=== PATIENT | male | born 1955 | race Caucasian/White ===

== ENCOUNTER 2016-10-11 17:35 | Inpatient (IN) ==
[2016-10-11] MEDS ORDERED: *HR* Midazolam HCl 2 MG/2 ML VIAL ONE (18:04)
[2016-10-11] MEDS ORDERED: *HR* FentaNYL (PF) 100 MCG/2 ML VIAL ONE (18:04)
[2016-10-11] MEDS ORDERED: 0.9 % Sodium Chloride 1,000 ML ONE (18:04)
[2016-10-11] MEDS ORDERED: Nitroglycerin 1,000 MCG/10 ML VIAL IV ONE (18:04)
[2016-10-11] MEDS ORDERED: Verapamil 5 MG/2 ML VIAL ONE (18:04)
[2016-10-11] MEDS ORDERED: Heparin 1,000 UNITS/500 mL NS 500 ML ONE (18:04)
[2016-10-11] MEDS ORDERED: *HR* Heparin 10,000 UNIT/10 ML VIAL ONE (18:04)
[2016-10-11] MEDS ORDERED: Ondansetron 4 MG/2 ML VIAL IVP PRN (18:20)
--- NOTE | 2016-10-11 18:20 | Pre-Sedation Evaluation ---
Pre-sedation evaluation - Pre-sedation checklist Date of procedure: 10/11/16 Procedure: [facility] Recent Vitals: VS as documented in EMR H&P (including ROS) documented in medical record: Yes Previous reaction to sedatives/anesthetics: No Dietary Status: NPO after Midnight Airway Assessment: Patient can open mouth completely, TMJ function normal Dentition: No loose teeth or bridges ASA Classification *see protocol: CLASS II-Mild systemic disease Plan of Care: Pt appropriate candidate for procedure/moderate/conscious sedation , Risks/benefits of procedure/sedation discussed w/ patient/family
--- NOTE | 2016-10-11 18:24 | Cardiology History & Physical ---
Date of Encounter: 10/11/16 Time of Encounter: 18:00 Assessment and Plan (1) STEMI (ST elevation myocardial infarction) Current Visit: No Status: Acute s/p cardiac arrest. Lateral STEMI. Emergent LHC to delineate coronary disease amenable for intervention. EF assessment will be completed. Aspirin, Brilinta , and heparin given. The assessment and plan as outlined above was discussed with the patient and/or family members who expressed understanding and agreement. All questions were answered. Qualifiers: Involved coronary artery: left circumflex coronary artery Qualified Code(s) : I21.21 - ST elevation (STEMI) myocardial infarction involving left circumflex coronary artery (2) Cardiac arrest Current Visit: Yes Status: Acute Emergent LHC. The assessment and plan as outlined above was discussed with the patient and/or family members who expressed understanding and agreement. All questions were answered. History of Present Illness Chief complaint: cardiac arrest / stemi HPI: Mr. Thompson is a 60 year old male with no previous cardiac history was at work when he had loss of consciousness and CPR x ~8minute with several defibrillations. When EMS arrived on scene, patient in SR and hemodynamically stable. He had evidence of lateral STEMI on EKG. Patient notes chest discomfort but is currently confused after 8 min CPR/cardiac arrest. Past Med Surg Social Fam HX - Past Medical History Medical history: hyperlipidemia, hypertension Psychiatric history: no psych history - Social History Smoking Status: Former smoker Smokeless Tobacco Status: No Alcohol use: none Drug use: none Medications and Allergies Allergies No Known Allergies Allergy (Verified 10/11/16 17:59) All Systems Review: A 10-system review of systems was performed and is negative for pertinent findings except as documented above in the HPI. - Constitutional Constitutional: no chills, no fever(s) - EENT Eyes: no blurred vision, no loss of vision Nose, mouth and throat: no bleeding gums, no epistaxis - Cardiovascular Cardiovascular: chest pain at rest, no syncope - Respiratory Respiratory: no hemoptysis, no wheezing - Gastrointestinal Gastrointestinal: no hematemesis, no hematochezia - Genitourinary Genitourinary: no dysuria, no hematuria - Musculoskeletal Musculoskeletal: no arthralgias, no myalgias - Integumentary Integumentary: no erythema, no unusual bruising - Neurological Neurological: no focal weakness, no syncope - Psychiatric Psychiatric: no anxiety, no depression - Hematological/Lymphatic Hematologic/Lymphatic: no easy bleeding, no easy bruising Physical Examination General: Conversant, Other (mild distress) HEENT: Atraumatic, Normocephaly Neck: No JVD Cardiac: Reg Rate and Rhythm Lungs: Normal Breath Sounds Neuro: Alert and responsive Abdomen: Soft Skin: No rashes noted on visualized skin Musculoskeletal: No Chest Wall Tenderness Extremities: No Edema Results - EKG Interpretation EKG results cardiology: personally reviewed, sinus rhythm (lateral current of injury - STEMI with reciprocal changes)
[2016-10-11] MEDS ORDERED: Tirofiban 12.5 MG/250ML 12.5 MG/250 ML BAG IVC SCH (18:30)
[2016-10-11] MEDS ORDERED: Tirofiban 5 MG/100ML 5 MG/100 ML BAG IV ONE (18:53)
[2016-10-11] MEDS ORDERED: *HR* Morphine 2 MG/ML SYRINGE IVP PRN (19:12)
[2016-10-11] MEDS ORDERED: *HR* HYDROcodone/Acet 5/325 mg TABLET PO PRN (19:12)
[2016-10-11] MEDS ORDERED: Acetaminophen 325 MG TABLET PO PRN (19:12)
[2016-10-11] MEDS ORDERED: *HR* OxyCODONE/APAP 5/325 TABLET PO PRN (19:12)
--- NOTE | 2016-10-11 19:34 | Invasive Diagnostic Lab Proc ---
Name: Panda Thompson Date of Study: 10/11/2016 Date: 1955 Ht: 67.0in Medical Record#: [id number] Age: 60 Wt: 200.00lb Gender: Male BSA: 2.02 Order #: [id number] BMI: 31.32 Physicians Procedure Physician: Jorgito Aguilera MD, [facility] Referring MD: Referring MD: Staff Name Position Time In [facility], Danyelle RT (R) Monitor 06:16 PM Sayra Aguilar RN Supervisory Investigative Specialist 06:16 PM Danyelle Gavin RT (R) Scrub 06:16 PM Indications Indication STEMI Procedures Performed Procedure PRQ CARD REVASC [place] 1 VSL L HRT ARTERY/VENTRICLE ANGIO Pre-Procedure Checklist Informed consent is complete signed and on chart. H\\T\\P is on chart. ID band is on and ID verified with patient. Patient NPO for procedure The procedure was described for the patient and questions were answered. Blood Pressure: 107/91 ECG is on chart. Rhythm: NSR Plan of Care Patient will tolerate the procedure without complications. Adequate level of comfort will be maintained. Hemodynamics will remain stable Patient will recover from procedure without complications. Respiratory function will be maintained. Cardiac rhythm will remain stable. Patient temperature will be maintained. Patient and/or family have verbalized understanding of the procedure. Patient Education Chief Complaint/Reason for Test: Cardiac Cath Developmental Category: Adult (18-64 years) Developmentally Appropriate for Age: Yes Learning Barriers: None Education Needs: Procedure Education Method: Verbal Information Taught: Cardiac Cath Educational Evaluation: Able to repeat information Intravenous Access Time IV Size Location DC'd Fluid/Drip Rate Units RN 20g 1 1/4" Patent On Arrival Sayra Aguilar RN 18g 1 1/4" Patent On Arrival 0.9NaCl 25 ml/hr Sayra Aguilar RN Allergies No Known Allergies Vital Signs Time BP (mmHg) HR (bpm) O2 Sat. RR (bpm) LOC 06:25 PM 119 / 94 83 96 % 22 06:27 PM 107 / 91 82 99 % 9 06:30 PM 120 / 69 81 99 % 35 06:33 PM 110 / 98 82 100 % 5 06:36 PM 112 / 65 75 97 % 14 06:39 PM 110 / 69 79 94 % 11 06:42 PM 108 / 60 75 97 % 9 06:45 PM 115 / 66 82 97 % 16 06:48 PM 115 / 62 77 97 % 20 06:51 PM 119 / 60 76 97 % 16 06:54 PM 112 / 62 75 97 % 28 06:57 PM 105 / 67 75 95 % 13 07:00 PM 87 / 66 82 95 % 07:02 PM 111 / 56 77 97 % 23 07:03 PM 108 / 65 75 98 % 14 Procedural Medications Time Medication Dose Units Method Given By 06:21 PM Oxygen 2 L/min nasal cannula Sayra Aguilar RN 06:21 PM Versed 2 mg Intravenous Sayra Aguilar RN 06:21 PM Fentanyl 50 mcg Intravenous Sayra Aguilar RN 06:28 PM Lidocaine 2% 1 ml Subcutaneous Jorgito Aguilera MD, FACC 06:29 PM Heparin 2000 units Nitroglycerin 200 mcg Verapamil 2.5 mg Intraarterial Jorgito Aguilera MD, FACC 06:54 PM Nitroglycerin 200 mcg Intracoronary Jorgito Aguilera MD 06:41 PM Aggrastat Bolus: 46 ml Intravenous Sayra Aguilar RN 06:41 PM Aggrastat 5mg/100ml 16.5 ml Intravenous Sayra Aguilar RN ASA Classification: Emergent Procedure: ASA score is assumed Tan Score Preprocedure Postprocedure Activity 2- Moves 4 extremities sustained head lift Activity 2- Moves 4 extremities sustained head lift Circulation 2- SBP +/= 20 points of pre-anesthetic level Circulation 2- SBP +/= 20 points of pre-anesthetic level Consciousness 2- Awake and alert oriented x 3 Consciousness 2- Awake and alert oriented x 3 O2 Saturation 2- Able to maintain O2 satruation of 92% on room air O2 Saturation 2- Able to maintain O2 satruation of 92% on room air Respiratory 2- Able to deep breathe and cough well Respiratory 2- Able to deep breathe and cough well Total Score 10 Total Score 10 Contrast Agent: Isovue Diagnostic Contrast: 170 ml Total Contrast: 170 ml Fluoro Dose: 707 mGy Procedure Log Time Note Enter By 06:16 PM Pt arrived to engineer ge[facility] laboratory 2 at 18:16 scoates 06:16 PM Danyelle Cabrales RT (R) Position: Monitor Time in: 18:16 tsites 06:16 PM Sayra Aguilar RN Position: Supervisory Investigative Specialist Time in: 18:16 tsites 06:16 PM Danyelle Gavin RT (R) Position: Scrub Time in: 18:16 tsites 06:20 PM pt unable to remember things constantly repeating himself. neuro assessment completed and within gallo limits pupils equal and reactive per Sayra Aguilar RN tsites 06:20 PM Physician arrived 18:20 tsites 06:20 PM Procedure start 18:20 tsites 06:21 PM Time: 18:21 Oxygen on at 2 L/min per nasal cannula by Sayra Aguilar RN tsites 06:21 PM Time: 18:21 Versed 2 mg Intravenous Given by Sayra Aguilar RN tsites 06:21 PM Time: 18:21 Fentanyl 50 mcg Intravenous Given by Sayra Aguilar RN tsites 06:23 PM Vitals capture started with the following parameters, Patient=Adult, Interval=3 min, Initial Ighidsyi=211 mmHg, Deflation Rate=5 mmHg, Cuff placed on Right Arm 06:24 PM 5Fr TIG catheter inserted over the wire [facility] tsites 06:24 PM 0.035 260cm Navilyst 3mmJ wire [id number] tsites 06:24 PM CathStat 06:25 PM HR=83 bpm, GFUM=162/94 mmhg, SpO2=96 %, Resp=22 B/min 06:27 PM HR=82 bpm, JLPG=431/91 mmhg, SpO2=99.0 %, Resp=9 B/min 06:28 PM Pressure channel 1 zeroed. 06:28 PM Time: 18:28 1 ml Lidocaine 2% to right radial Subcutaneous Given by Jorgito Aguilera MD, [facility] tsites 06:28 PM Access obtained by percutaneous puncture. 6Fr 10cm Terumo [place] sheath placed in right Radial artery. [id number] tsites 06:29 PM Time: 18:29 Patient given 2,000 units Heparin, 200 mcg Nitroglycerin, and 2.5 mg Verapamil Intraarterial by Jorgito Aguilera MD, [facility] tsites 06:30 PM HR=81 bpm, XOUA=159/69 mmhg, SpO2=99.0 %, Resp=35 B/min 06:31 PM Pressure channel 1 zero failed. 06:33 PM HR=82 bpm, LNPB=133/98 mmhg, AxT7=933 %, Resp=5 B/min 06:33 PM Patient charges- Angio tray pack, Navilyst 3mm J, Pulse Oximetry and ACIST tubing and transducer tsites 06:34 PM Case Delayed No tsites 06:35 PM Clinical Presentation: STEMI or equivalent tsites 06:36 PM HR=75 bpm, NYQR=800/65 mmhg, SpO2=97 %, Resp=14 B/min 06:36 PM RCA angiography performed in multiple views. tsites 06:36 PM Lesion found in Proximal RCA. Pre Stenosis: 80 Pre CESAR Flow: tsites 06:36 PM Right Coronary, Right Posterior Descending Arteries with Right Posterolateral and Acute Marginal branches with 80 % stenosis. If graft is supplying this area, 0 % stenosis tsites 06:36 PM LCA angiography performed in multiple views. tsites 06:37 PM Pressure channel 1 zeroed. 06:38 PM Recorded Pressure: Ao, HR=72, Condition=Condition 1 (Aorta) Ao 104/81/92 06:38 PM Lesion found in Mid Circumflex. Pre Stenosis: 95 Pre CESAR Flow: tsites 06:38 PM Circumflex, Obtuse Marginal, Left Posterior Descending, and Left Posterolateral Coronary Arteries with 95 % stenosis. If graft is supplying this area, 0 % stenosis tsites 06:38 PM wire reinserted catheter removed tsites 06:38 PM PCI Status Emergency tsites 06:39 PM PCI Indication: Immediate PCI for STEMI tsites 06:39 PM HR=79 bpm, ARHP=041/69 mmhg, SpO2=94.0 %, Resp=11 B/min 06:39 PM PCI lesion in Mid Circumflex. tsites 06:39 PM 6Fr RBL 3.5 Convey guide catheter was used to cannulate the PCI vessel successfully. reused? No tsites 06:40 PM Inflation device was opened. tsites 06:40 PM .014 PT Graphix 180cm guide wire across target lesion- successful. reused? No tsites 06:41 PM Time: 18:41 Aggrastat 5mg/100ml 16.5 ml Intravenous Given by Sayra Aguilar RN Piper pump tsites 06:41 PM Time: 18:41 Aggrastat Bolus: 46 ml Intravenous Given by Sayra Aguilar RN Piper pump tsites 06:42 PM HR=75 bpm, VMXO=834/60 mmhg, SpO2=97.0 %, Resp=9 B/min 06:42 PM 2.5 mm x 12 mm Emerge Monorail balloon across target lesion- successful. reused? No tsites 06:42 PM Balloon inflated @ 10 ingrid for 9 seconds tsites 06:45 PM HR=82 bpm, HDDW=682/66 mmhg, SpO2=97.0 %, Resp=16 B/min 06:47 PM 4.0mm x 24mm Synergy drug-eluting stent across target lesion- successful Lot #[id number] tsites 06:47 PM unable to cross tsites 06:48 PM HR=77 bpm, TBFK=715/62 mmhg, SpO2=97 %, Resp=20 B/min 06:49 PM 3.5mm x 24mm Synergy drug-eluting stent across target lesion- successful Lot #[id number] tsites 06:50 PM Stent deployed @ 14 ingrid for 19 seconds tsites 06:50 PM Recorded ECG: HR=75 Condition=Condition 1 06:51 PM HR=76 bpm, UGRL=588/60 mmhg, SpO2=97.0 %, Resp=16 B/min 06:51 PM Stent delivery system removed intact. tsites 06:52 PM 4.0 mm x 8mm NC Emerge balloon across target lesion- successful. reused? No tsites 06:53 PM Balloon inflated @ 20 ingrid for 12 seconds tsites 06:54 PM HR=75 bpm, CLOG=302/62 mmhg, SpO2=97.0 %, Resp=28 B/min 06:54 PM Time: 18:54 Nitroglycerin 200 mcg Intracoronary Given by Jorgito Aguilera MD tsites 06:56 PM Balloon catheter removed intact. tsites 06:56 PM Guide wire removed intact. tsites 06:56 PM wire reinserted catheter removed tsites 06:57 PM HR=75 bpm, GIJX=232/67 mmhg, SpO2=95.0 %, Resp=13 B/min 06:57 PM Recorded Pressure: LV, HR=83, Condition=Condition 1 (Left Ventricle) LV 115/36/53 06:57 PM 5Fr Pigtail catheter inserted over the wire [facility] tsites 06:57 PM Catheter selectively placed in left ventricle tsites 06:57 PM Bolus angiogram of left Ventricle complete: 10 ml/sec for a total of 30 mls tsites 06:58 PM Recorded Pressure: LV, Ao, HR=71, Condition=Condition 1 (Left Ventricle) LV 127/17/29, (Aorta) Ao 108/73/90 06:59 PM Catheter removed tsites 06:59 PM Procedure completed at 18:59 tsites 07:00 PM HR=82 bpm, NIBP=87/66 mmhg, SpO2=95.0 % 07:01 PM NIBP STAT measurement started. 07:02 PM HR=77 bpm, YZVZ=840/56 mmhg, SpO2=97 %, Resp=23 B/min 07:03 PM HR=75 bpm, QKWU=501/65 mmhg, SpO2=98 %, Resp=14 B/min 07:05 PM Sign out completed: Radiation Dose 707 mGy Fluoro Time: 6.5 Isovue 370 - 500ml contrast 170 ml given by Jorgito Aguilera MD, [facility]. Complications: NoneCardiac Rehab Consult needed: YesConfirmed administered medications: Yes tsites 07:05 PM Isovue 370 - 500ml,1 Bottle(s) used. tsites 07:05 PM Arterial sheath pulled, Vasc Band closure device used and was Successful S/N. tsites 07:05 PM 11 ml air in Vasc Band. tsites 07:06 PM Post ECG NSR tsites 07:06 PM Vitals capture stopped. 07:06 PM Post Blood Pressure 108/65 tsites 07:06 PM 19:06 Post Pulses Rt Radial 1+ tsites 07:06 PM Information taught Cardiac Cath, PCI, and Vasc Band tsites 07:06 PM Education needs Procedure, Plan of Care, and Responsibilities of Patient in Care tsites 07:06 PM Learning barriers :None tsites 07:06 PM Education Methods Verbal tsites 07:07 PM Education evaluation Able to repeat information tsites 07:07 PM Site status No bleeding/hematoma - Rt Wrist as reported by Danyelle Gavin RT (R) at 19:07 tsites 07:07 PM Plavix, Effient or Brilinta given Yes at [facility] tsites 07:07 PM Delay to floor No tsites 07:08 PM Patient out of room: 19:08 tsites 07:08 PM Family placed in consult room. tsites 07:10 PM Report given to alta GUERRERO Pt taken to ICU Room #7. 19:10 tsites Complications Complication None Hemodynamics Pressures Site Systolic/A Wave Diastolic/V Wave Mean AO 104 81 92 LV 115 36 53 LV 127 17 29 AO 108 73 90 Post Procedure Information Blood Pressure: 108/65 mmHg Rhythm: NSR Post procedural instructions were given Closure Device Time Device Success/Fail 10/11/2016 7:10:00 PM Mechanical Compression Successful Site Checks Time Location Status Staff Sheath In? Note 07:10 PM Rt Wrist No bleeding/hematoma Danyelle Gavin RT (R) Pulses Time Site Pre-Procedure Post-Procedure Note Bilateral DP \\T\\ PT 2+ Bilateral radial 2+ 7:06:00 PM Rt Radial 1+ Updated by Danyelle Cabrales RT (R) on 10/11/2016 7:29:20 PM Danyelle Cabrales, RT electronically signed on 10/11/2016 7:30:15 PM with status of Final
[2016-10-11] MEDS: *HR* Ticagrelor 90 MG TABLET PO SCH (21:03)
[2016-10-12 04:32] LABS: Basophils % 0.1 %; Hematocrit 32.2 % (37.5-50.1); Immature Granulocytes % 0.4 % (0-4); Lymphocytes # 0.7 K/mcL (0.6-4.6); Lymphocytes % 5.1 %; Mean Corpuscular HGB Conc 34.2 g/dL (31.6-35.5); Mean Corpuscular Hemoglobin 28.3 pg (28.0-33.3); Mean Corpuscular Volume 82.8 fL (83.0-100.0); Monocytes # 0.7 K/mcL (0.0-1.3); Monocytes % 5.1 %; Neutrophils # 11.5 K/mcL (1.6-8.9); Platelet Count 278 K/mcL (140-400); Red Blood Count 3.89 M/mcL (4.19-5.50); Red Cell Distribution Width 12.4 % (11.5-14.5); Segmented Neutrophils % 89.3 %
[2016-10-12 04:47] LABS: BUN/Creatinine Ratio 22 (6-26); Blood Urea Nitrogen 20 mg/dL (8-26); Calcium 8.1 mg/dL (8.6-10.8); Carbon Dioxide 20 mEq/L (19-29); Chloride 107 mEq/L (98-109); Glucose 142 mg/dL (70-99); Osmolality,Calculated 285 (280-300); Potassium 3.9 mEq/L (3.5-4.5); Sodium 135 mEq/L (136-145); eGFR For African Americans > 60 (> 60); eGFR For Non-African Americans > 60 (> 60)
--- NOTE | 2016-10-12 08:15 | Cardiology Progress Note ---
Date of Encounter: 10/12/16 Time of Encounter: 08:15 Assessment and Plan (1) Cardiac arrest Current Visit: Yes Status: Acute Per Cardiology: S/p apparent cardiac arrest requiring defibrillations and CPR-- no ECGs or rhythm strips available. Attempting to obtain from outside facility and from the field. Tele shows avg HR 68 with episodes of NSVT with longest 7 beats. K= 3.9. Will check Mg-- noted to be 1.5, will replace. Will add BB. Monitor tele. Will continue to monitor and determine prior to DC any further intervention warranted. (2) STEMI (ST elevation myocardial infarction) Current Visit: No Status: Acute Per Cardiology: S/p cardiac arrest. Lateral STEMI. S/p Emergent LHC: per discussion with Dr. Aguilera, s/p PCI to mid circ, has remaining Prox RCA 80%-- can consider staging if clinically warranted. On Aspirin, Brilinta, statin-- will switch back to home statin, adding BB. Echo pending. Has CR C/S. Current chest pain symptoms. Atypical suspect related to compressions and defib. Continue to monitor. Qualifiers: Involved coronary artery: left circumflex coronary artery Qualified Code(s) : I21.21 - ST elevation (STEMI) myocardial infarction involving left circumflex coronary artery Discussion w patient/family: The assessment and plan as outlined above was discussed with the patient and/or family members who expressed understanding and agreement. All questions were answered. Thank you for involving us in the care of your patient. Please call with any questions. Subjective Principal diagnosis: Cardiac Arrest, STEMI Interval history: Patient reports overall midsternal chest aching/soreness worse with palpation and inspirations. Reports prior to event yesterday was experiencing indigestion- like symptoms, epigastric burning and shortness of breath. Currently denies those symptoms. Reports quit smoking about 20 years ago. Objective Vital Signs, Last 4 Hours Temp Pulse Resp BP Pulse Ox 10/12/16 07:30 100.0 F H 63 19 112/60 96 10/12/16 05:57 65 18 117/67 97 10/12/16 05:13 99.8 F H 10/12/16 05:02 64 18 116/66 98 Selected Entries 10/12/16 03:59 Temperature 100.7 F H General: Conversant, No Apparent Distress HEENT: Atraumatic, Normocephaly, Mucus Membranes Moist Neck: No JVD, Normal carotid pulses Cardiac: Reg Rate and Rhythm, Normal S1 and S2, No Murmur Lungs: Normal Breath Sounds, No Wheeze, Rales, Rhonchi Neuro: Alert and responsive, No focal deficits noted Abdomen: Soft, Non-Tender Skin: No rashes noted on visualized skin, Other (Right wrist site very mild ecchymosis, no bleeding, no hematoma, right radial pulse 2+ palpable) Musculoskeletal: No Chest Wall Tenderness Extremities: No Clubbing, No Cyanosis, No Edema, Normal Pulses Results 10/12/16 04:20 10/12/16 04:20 Lab Results Intake & Output 10/09/16 10/10/16 10/11/16 10/12/16 23:59 23:59 23:59 23:59 Intake Total 0 / 0 100 / 100 Output Total 0 / 0 1000 / 1000 Balance 0 / 0 -900 / -900 Weight 102.58 kg 95.3 kg Active Medications Acetaminophen (Tylenol) 500 mg PO Q6HR PRN PRN Reason: Mild Pain Stop: 04/12/17 18:21 Acetaminophen (Tylenol) 650 mg PO Q6HR PRN PRN Reason: Mild Pain Stop: 04/12/17 19:13 Hydrocodone Bitart/Acetaminophen (Collyer 5-325 Mg) 1 tab PO Q4HR PRN PRN Reason: Moderate Pain Stop: 04/12/17 19:13 Aspirin (Aspirin) 81 mg PO DAILY [facility] Stop: 04/13/17 09:01 Diphenhydramine HCl (Benadryl) 25 mg PO HS PRN PRN Reason: Insomnia Stop: 04/12/17 19:13 Last Admin: 10/11/16 21:03 Dose: 25 mg Morphine Sulfate (Morphine Sulfate) 2 mg IVP Q2H PRN PRN Reason: Severe Pain Stop: 04/12/17 19:13 Ondansetron HCl (Zofran) 4 mg IVP Q8HR PRN PRN Reason: Nausea And Vomiting Stop: 04/12/17 18:21 Oxycodone/Acetaminophen (Percocet 5/325) 1 each PO Q4HR PRN PRN Reason: Severe Pain Stop: 04/12/17 19:13 Rosuvastatin Calcium (Crestor) 40 mg PO HS MIKE Stop: 04/12/17 21:01 Last Admin: 10/11/16 21:03 Dose: 40 mg Ticagrelor (Brilinta) 90 mg PO BID MIKE Stop: 04/12/17 21:01 Last Admin: 10/11/16 21:03 Dose: 90 mg - Imaging and Cardiology Echo: pending Cardiac cath: other (per discussion with Dr. Aguilera, s/p PCI to mid circ, has remaining Prox RCA 80% can consider staging if clinically warranted.) - EKG Interpretation EKG results cardiology: personally reviewed (No ECGs or strips available from outside facility or the field), other (Tele reviewed with avg HR past 8 hrs 68, episodes of NST noted, longest 7 beats) Consult Discharge Plan - Plan Referrals: Richard Salcedo DO [Primary Care Provider] -
[2016-10-12 08:45] LABS: Magnesium 1.5 mg/dL (1.6-2.6)
--- NOTE | 2016-10-12 08:45 | Invasive Diagnostic Lab ---
Name: Panda Thompson Date of Study: 10/11/2016 Date: 1955 Ht: 170.2 cm /67.0 in Medical Record#: [id number] Age: 60 Wt: 90.7 kg / 200.00 lb Account/Order#: [id number] Gender: Male BSA: 2.02 Order #: [id number] Fluoro Dose: 707 mGy BMI: 31.32 Procedure Physician: Jorgito Aguilera MD, [facility] Referring MD: Referring MD: Procedures Performed: PCI of Acute VA LEFT HEART CATH Indications: STEMI Impressions: There is severe two vessel coronary artery disease. There is low normal LV function EF 50% Patient had successful PTCA/Drug-Eluting Stent placement in the mid Circ. Recommendations: Optimal medical therapy of patient's disease. Aggressive risk factor modification. Patient recommended for staged PCI to proximal 80% RCA stenosis. History/Risk Factors: cardaic arrest Hypertension Dyslipidemia Procedure Access obtained in the right Radial artery by percutaneous puncture Patient had successful PTCA/Drug-Eluting Stent placement in the mid Circ. Complications: None Contrast: Isovue 170ml Closure Device: Mechanical Compression Hemodynamics: Pressures Site Systolic/ A Wave Diastolic/ V Wave End Diastolic/ Mean HR AO 104 81 92 72 LV 115 36 53 83 LV 127 17 29 54 AO 108 73 90 82 LV Ventriculography Ejection Method: LV Gram Ejection Fraction: 50% Wall Motion: JOSEPH Anterobasal Normal Anterolateral Normal Apical: Normal Inferoapical Normal Inferobasal Normal Coronary Dominance: Lesion Findings/Interventions * Left Main Coronary Artery The LMCA is angiographically free of disease. * Left Anterior Descending The LAD has mild disease. Mid distal LAD is small. The 1st Diagonal is angiographically free of obstructive disease and is of slightly larger caliber than mid distal LAD. * Circumflex There is a 95 mm long, 99% stenosis in the Mid Circumflex culprit for lateral STEMI - acute VA. The lesion has a CESAR flow of 2 and has no thrombus present. An intervention was performed on the Mid Circumflex with a final stenosis of 0%. There were no lesion complications. The final CESAR flow was 3. Proximal LCx 50% stenosis * Right Coronary Artery There is a 80% stenosis in the Proximal RCA. Interventional Device(s) Vessel Segment Type Name Diameter (mm) Length (mm) Mid Circumflex Balloon Emerge Monorail 2.5 12 Mid Circumflex Drug Eluting Stent Synergy 3.5 24 Mid Circumflex Balloon NC Emerge 4 8 Updated by Danyelle Cabrales, RT (R) on 10/11/2016 7:29:49 PM Jorgito Aguilera MD, FACC electronically signed on 10/12/2016 8:39:54 AM with status of Final
[2016-10-12] MEDS: Metoprolol XL (24 HR) Succ 25 MG TAB.ER.24H PO SCH (09:52)
[2016-10-12] MEDS: Aspirin 81 MG TAB.CHEW PO SCH (09:52)
[2016-10-12] MEDS: *HR* Ticagrelor 90 MG TABLET PO SCH ×2 (09:53→21:06)
[2016-10-12] MEDS ORDERED: Magnesium Sulfate 4 GM in D5% in Water 100 ML IVPB ONE (10:01)
[2016-10-12] MEDS: Magnesium Sulfate 2 GM in D5% in Water 100 ML IVPB SCH ×2 (11:22→12:30)
[2016-10-12] MEDS ORDERED: Dextrose Gel 15 GM PO PRN ×2 (12:27)
[2016-10-12] MEDS ORDERED: D5% in Water 1,000 ML IVC PRN (12:27)
[2016-10-12] MEDS ORDERED: *HR* Dextrose 50 % in Water (Syg) 50 ML SYRINGE IVP PRN (12:27)
--- NOTE | 2016-10-12 13:25 | Electrocardiograph Report ---
[place] [id number] Test Date: 2016-10-11 Pat Name: Panda Thompson Department: 109 Room: [facility] Gender: M [place] Weaver: : 1955 Requested By: Jorgito Aguilera Order Number: [id number] Reading MD: Jorgito Aguilera MD Measurements Intervals [place] Rate: 70 P: 56 IL: 179 QRS: 56 QRSD: 109 T: 66 QT: 384 QTc: 404 Interpretive Statements SINUS RHYTHM Electronically Signed On 10-12-2016 13:24:26 EDT by Jorgito Aguilera MD
[2016-10-12] MEDS: Insulin LISPRO 300 UNITS/3 ML VIAL SQ SCH (17:57)
[2016-10-12] MEDS ORDERED: Insulin LISPRO 300 UNITS/3 ML VIAL SQ SCH (21:00)
[2016-10-13 06:09] LABS: BUN/Creatinine Ratio 17 (6-26); Blood Urea Nitrogen 15 mg/dL (8-26); Calcium 8.3 mg/dL (8.6-10.8); Carbon Dioxide 25 mEq/L (19-29); Chloride 108 mEq/L (98-109); Glucose 127 mg/dL (70-99); Magnesium 1.8 mg/dL (1.6-2.6); Osmolality,Calculated 286 (280-300); Potassium 4.3 mEq/L (3.5-4.5); Sodium 137 mEq/L (136-145); eGFR For African Americans > 60 (> 60); eGFR For Non-African Americans > 60 (> 60)
[2016-10-13] MEDS: Insulin LISPRO 300 UNITS/3 ML VIAL SQ SCH ×3 (07:51→16:58)
--- NOTE | 2016-10-13 09:53 | Cardiology Progress Note ---
Date of Encounter: 10/13/16 Time of Encounter: 09:30 Assessment and Plan (1) Cardiac arrest Current Visit: Yes Status: Acute Per Cardiology: S/p apparent cardiac arrest requiring defibrillation and CPR in the setting of STEMI-- no ECGs or rhythm strips available. Attempting to obtain from outside facility and from the field. Tele shows avg HR=54 SB, no episodes of NSVT noted, HR mid 60's at bedside. Mag 1.8 this AM s/p 4 gm IV rider yesterday, will give po replacement today. Short term memory issues noted, discussed with Dr. Loza--expected given cardiac arrest s/p CPR/defibrillation. Alert and oriented x3, will continue to monitor. (2) STEMI (ST elevation myocardial infarction) Current Visit: No Status: Acute Per Cardiology: S/p cardiac arrest. Lateral STEMI. S/p Emergent LHC, successful PTCA/GHADA to mLCx , has remaining Prox RCA 80%-- can consider staging if clinically warranted. TTE: EF preserved, normal wall motion. No recurrent angina, will step down out of ICU today. Encouraged ambulation to assess for angina. Emphasized the importance of uninterrupted DAPT (asa + brilinta) for at least 1 year. Continue statin and betablocker. Cardiac rehab ordered. No issues with cath site. Qualifiers: Involved coronary artery: left circumflex coronary artery Qualified Code(s) : I21.21 - ST elevation (STEMI) myocardial infarction involving left circumflex coronary artery Discussion w patient/family: The assessment and plan as outlined above was discussed with the patient and/or family members who expressed understanding and agreement. All questions were answered. Thank you for involving us in the care of your patient. Please call with any questions. The patient will be discussed and reviewed with Dr. Loza; changes to be made accordingly. Subjective Principal diagnosis: Cardiac Arrest, STEMI Interval history: Seen and examined. Alert and oriented x3. Continues to complain of reproducible midsternal chest pain--also worsens with cough, movement. No other complaints. No issues with cath access site. Objective Vital Signs, Last 4 Hours Temp Pulse Resp BP Pulse Ox 10/13/16 08:30 54 19 125/78 94 10/13/16 07:32 99.2 F 10/13/16 07:30 52 19 133/73 94 10/13/16 06:00 55 20 120/64 92 General: Conversant, No Apparent Distress HEENT: Atraumatic, Normocephaly, Mucus Membranes Moist Cardiac: Reg Rate and Rhythm, Normal S1 and S2 Lungs: Normal Breath Sounds Neuro: Alert and responsive Abdomen: Soft Skin: No rashes noted on visualized skin Musculoskeletal: No Chest Wall Tenderness Extremities: No Edema, Normal Pulses Results 10/12/16 04:20 10/13/16 05:44 Lab Results 10/13/16 05:44 Sodium 137 Potassium 4.3 Chloride 108 Carbon Dioxide 25 BUN 15 Creatinine 0.87 Glucose 127 H Calcium 8.3 L Magnesium 1.8 - Imaging and Cardiology Echo: report reviewed Cardiac cath: report reviewed Other Results: 12 hour tele: avg HR=52 SR. No NSVT noted. - EKG Interpretation EKG results cardiology: personally reviewed Consult Discharge Plan - Plan Referrals: Richard Salcedo DO [Primary Care Provider] -
[2016-10-13] MEDS: Aspirin 81 MG TAB.CHEW PO SCH (09:57)
[2016-10-13] MEDS: *HR* Ticagrelor 90 MG TABLET PO SCH ×2 (09:57→21:32)
[2016-10-13] MEDS: Metoprolol XL (24 HR) Succ 25 MG TAB.ER.24H PO SCH (09:57)
[2016-10-13] MEDS ORDERED: Acetaminophen 325 MG TABLET PO PRN (10:09)
[2016-10-13] MEDS ORDERED: *HR* Morphine 2 MG/ML SYRINGE IVP PRN (10:09)
[2016-10-13] MEDS ORDERED: Dextrose Gel 15 GM PO PRN ×2 (10:09)
[2016-10-13] MEDS ORDERED: *HR* Dextrose 50 % in Water (Syg) 50 ML SYRINGE IVP PRN (10:09)
[2016-10-13] MEDS ORDERED: D5% in Water 1,000 ML IVC PRN (10:09)
[2016-10-13] MEDS ORDERED: *HR* OxyCODONE/APAP 5/325 TABLET PO PRN (10:09)
[2016-10-13] MEDS ORDERED: Ondansetron 4 MG/2 ML VIAL IVP PRN (10:09)
[2016-10-13] MEDS ORDERED: Magnesium Oxide 400 MG TABLET PO SCH (10:15)
[2016-10-13] MEDS: Magnesium Oxide 400 MG TABLET PO SCH ×2 (10:50→21:32)
[2016-10-13] MEDS: *HR* HYDROcodone/Acet 5/325 mg TABLET PO PRN (17:01)
[2016-10-13] MEDS ORDERED: Insulin LISPRO 300 UNITS/3 ML VIAL SQ SCH (21:00)
[2016-10-14] MEDS: *HR* HYDROcodone/Acet 5/325 mg TABLET PO PRN ×2 (00:11→08:43)
[2016-10-14] MEDS: Insulin LISPRO 300 UNITS/3 ML VIAL SQ SCH ×2 (07:44→11:32)
[2016-10-14 08:02] VITALS: BP 131/68
[2016-10-14] MEDS: *HR* Ticagrelor 90 MG TABLET PO SCH (08:42)
[2016-10-14 08:56] LABS: Basophils % 0.2 %; Eosinophils # 0.1 K/mcL (0.0-0.6); Eosinophils % 0.6 %; Hematocrit 32.7 % (37.5-50.1); Immature Granulocytes % 0.6 % (0-4); Lymphocytes # 0.9 K/mcL (0.6-4.6); Lymphocytes % 7.1 %; Mean Corpuscular HGB Conc 33.6 g/dL (31.6-35.5); Mean Corpuscular Volume 83.2 fL (83.0-100.0); Mean Platelet Volume 8.9 fL (9.4-12.4); Monocytes # 0.5 K/mcL (0.0-1.3); Monocytes % 4.5 %; Neutrophils # 10.5 K/mcL (1.6-8.9); Platelet Count 242 K/mcL (140-400); Red Blood Count 3.93 M/mcL (4.19-5.50); Red Cell Distribution Width 12.6 % (11.5-14.5)
[2016-10-14] MEDS ORDERED: Metoprolol XL (24 HR) Succ 25 MG TAB.ER.24H PO SCH (09:00)
[2016-10-14] MEDS ORDERED: Aspirin 81 MG TAB.CHEW PO SCH (09:00)
[2016-10-14 09:06] LABS: BUN/Creatinine Ratio 15 (6-26); Blood Urea Nitrogen 15 mg/dL (8-26); Calcium 8.4 mg/dL (8.6-10.8); Carbon Dioxide 22 mEq/L (19-29); Chloride 105 mEq/L (98-109); Glucose 179 mg/dL (70-99); Osmolality,Calculated 281 (280-300); Sodium 133 mEq/L (136-145); eGFR For African Americans > 60 (> 60); eGFR For Non-African Americans > 60 (> 60)
--- NOTE | 2016-10-14 09:47 | Discharge Summary ---
Date of Encounter: 10/14/16 Time of Encounter: 09:44 - Discharge Diagnosis (1) STEMI (ST elevation myocardial infarction) Priority: Primary Status: Acute Qualifiers: Involved coronary artery: left circumflex coronary artery Qualified Code(s) : I21.21 - ST elevation (STEMI) myocardial infarction involving left circumflex coronary artery (2) Cardiac arrest Priority: Primary Status: Acute (3) Diabetes Priority: Secondary Status: Chronic Qualifiers: Diabetes mellitus type: type 2 Diabetes mellitus complication status: without complication Diabetes mellitus exterminator helper insulin use: without exterminator helper use Qualified Code(s): E11.9 - Type 2 diabetes mellitus without complications (4) Hyperlipemia Priority: Secondary Status: Chronic Qualifiers: Hyperlipidemia type: pure hypercholesterolemia Qualified Code(s): E78.00 - Pure hypercholesterolemia, unspecified; E78.0 - Pure hypercholesterolemia - Discharge Medications Prescriptions: Nitroglycerin 0.4 mg SL Q5MIN PRN #25 tab.subl PRN Reason: Chest Pain Metoprolol XL (24 HR) Succ [Toprol Xl] 12.5 mg PO DAILY #60 tab.er.24h Ticagrelor [Brilinta] 90 mg PO BID #60 tablet Home Medications: Aspirin [Lo-Dose Aspirin EC] 81 mg PO DAILY 10/11/16 [History] Atorvastatin Calcium 80 mg PO DAILY 10/11/16 [History] Timolol Maleate 0.5% 1 drop OP DAILY 10/11/16 [History] metFORMIN [Glucophage] 500 mg PO BID 10/11/16 [History] Acetaminophen [Tylenol] 650 mg PO Q6HR PRN #0 tablet 10/14/16 [Rx] Metoprolol XL (24 HR) Succ [Toprol Xl] 12.5 mg PO DAILY #60 tab.er.24h 10/14/16 [Rx] Nitroglycerin 0.4 mg SL Q5MIN PRN #25 tab.subl 10/14/16 [Rx] Ticagrelor [Brilinta] 90 mg PO BID #60 tablet 10/14/16 [Rx] Allergies/Adverse Reactions: Allergies rosuvastatin [From Crestor] Adverse Reaction (Verified 10/11/16 19:57) Itching Procedures/tests Complete & Pending: Procedures Performed prior 72 hours Category Date Time Status CL Cardiac Catheterization [CL] Routine Nitroglycerin Separator Operator 10/11/16 18:00 Completed ECG 12 lead ECG [ECG] Routine Y 10/12/16 07:00 Ordered ECG 12 lead ECG [ECG] Stat Y 10/11/16 18:20 Completed EV echocardiogram Routine Y 10/11/16 18:20 Completed Date of admission: 10/11/16 18:12 Primary care physician: Richard Salcedo DO Consults: 10/11/16 18:20 Consult to Cardiac Rehabilitation-Phase1 [CONS] Routine Comment: Reason for Consult: AMI Call Completed: Yes Consult to Nurse Navigator [CONS] Routine Comment: Discharging clinician: Chris Mei Anticipated date of discharge: 10/14/16 - Patient Status Disposition: Home, Self-Care Condition: Good Overall status at discharge: patient is progressing back to baseline - Discharge Instructions Follow Up With: Richard Salcedo DO [Primary Care Provider] - Main Barney MD [Partnered Physician] - (10/27/16 at 7:45) Additional Instructions: RISK FACTORS: STOP SMOKING: If you smoke, STOP. Smoking or tobacco use significantly increases your risk of heart disease because nicotine causes the arteries to narrow or constrict. It also causes fats to stick to the artery. Your chances of having a heart attack are greatly increased if you continue to smoke. For more information, call the education line for smoking cessation 3-210-AXGSNMK EAT A LOW FAT/CHOLESTEROL/SODIUM DIET: This diet may help reduce your chances of having a heart attack. LIFTING: With affected extremity: Avoid bending, pushing off and lifting more than 2 pounds for 24 hours The following 48 hours, avoid lifting anything more than 5 pounds Avoid strenuous activity or repetitive motions ACTIVITY: You may walk or climb stairs as tolerated You can resume sexual activity as tolerated In general, you are encouraged to engage in a minimum of 30 minutes or more of moderate intensity physical activity, such as brisk walking, daily or at least 3 -4 times weekly BATHING Do not submerge the site into water (bath tub, hot tub, swimming pool, dishes) for 1 week. This can be a source for infection into the blood stream. You may shower after 24 hours SITE CARE: After 24 hours, you may remove the dressing and leave the site open to air. Keep the site clean and dry. Clean gently and pat dry. You can expect bruising and tenderness that gradually resolve within a week or two. Return to work as instructed per your physician Resume driving as instructed per physician Keep all scheduled follow up appointments Resume medications as instructed IMPORTANT: If prescribed a Platelet Aggregation Inhibitor such as, Plavix, Brilinta or Effient: Duration of therapy is minimum one year These medications are often used in combination with Aspirin in prevention of future heart attacks Never discontinue unless consult with your Legal Nurse Consultant STROKE (CVA) Risk factors for a stroke are: Age, cigarette smoking, diabetes, excessive alcohol consumption, family history, high blood pressure, overweight, physical inactivity, prior stroke, heart attack, diagnosis of carotid artery stenosis or other artery disease. Warning signs: Sudden numbness or weakness of the face, arm or leg; especially on one side of the body, sudden confusion, trouble speaking or understanding, sudden trouble seeing in one or both eyes, sudden trouble walking, dizziness, loss of balance or coordination, sudden severe headache with no cause. Call 911 or go to the Emergency Room. CONGESTIVE HEART FAILURE: If you have been diagnosed with Congestive Heart Failure (CHF) and your symptoms return, make an appointment with your physician Weigh yourself daily. Notify your physician if you have a weight gain of two or more pounds in one day or five or more pounds in one week. If you experience any difficulty breathing, please call 911 BLEEDING: Although the risk of bleeding is minimal, it can happen. If you have any bleeding from the site, apply firm pressure above the puncture site for 10-15 minutes. If the bleeding does not stop, continue manual pressure and call 911 Contact [facility] ( ) if: You develop a fever greater than 101 degrees Fahrenheit Your site becomes reddened or has any drainage You have an increase in pain or burning at the site or if a large knot forms at the site. If you experience chest pain, shortness of breath, dizziness, or extreme tiredness, stop the activity and rest. Please notify [facility] office if you experience any of these symptoms and they are not relieved by rest please call 911! - Diet and Activity Activity: increase activity as tolerated Diet: low fat, low cholesterol - Hospital Course Hospital course: Mr. Thompson is a 60 year old male who presented after collapsing at work and receiving CPR and defibrillation by EMS. He responded after one shock. No strips available to review. Cardiac arrest from STEMI. He was taken emergently to the cardiac catheterization lab and found to have a 99% stenosis in his mid left circumflex artery and received PTCA and GHADA. There was an 80% pRCA stenosis remaining. Staged PCI can be considered if recurrent symptoms. He has midsternal chest soreness from CPR. He ambulated in the hallway without new symptoms. TTE showed EF 50-55%. No significant valvular disease. There was no complication from his procedure. Kidney function remains normal. Mild leukocytosis noted. Likely reactive. Over the last 24 hours he developed bloody drainage from his urethra. No large amount of bleeding noted. No significant hematuria noted. No trauma to urethra during stay. He did not have a mack catheter. He denies pain with urination. Hgb is stable. I called and discussed with our urologist Dr. Barney. He recommends close out patient f/u with him to plan for cystoscopy. Importance of DAPT with brilinta and asa uninterrupted for minimum of one year reviewed with patient and reviewed and she voiced understanding. NTG SL use, indication, SE reviewed. Activity restrictions reviewed as stated above. He is now ready for discharge home. [facility] will coordinate one week f/u with Dr. Jorgito Aguilera or [facility]. - Time Spent with Patient Total time spent providing and/or coordinating discharge services: Greater than 30 minutes (D/c summary, d/c teaching) Physical Examination Vital Signs, Last 4 Hours Temp Pulse Resp BP Pulse Ox 10/14/16 07:54 58 20 131/68 98 10/14/16 07:28 98.1 F General: Conversant, No Apparent Distress HEENT: Atraumatic, Normocephaly, Mucus Membranes Moist Neck: No JVD, Normal carotid pulses Cardiac: Reg Rate and Rhythm, Normal S1 and S2, No Murmur Lungs: Normal Breath Sounds, No Wheeze, Rales, Rhonchi Neuro: Alert and responsive, No focal deficits noted Abdomen: Soft, Non-Tender Skin: No rashes noted on visualized skin Musculoskeletal: No Chest Wall Tenderness Extremities: No Clubbing, No Cyanosis, No Edema, Normal Pulses
--- NOTE | 2016-10-17 11:14 | Electrocardiograph Report ---
[address] [place] [address] Test Date: 2016-10-14 Pat Name: Panda Thompson Department: 109 Room: [facility] Gender: M Strapping Machine Tender: CRISTINE : 1955 Requested By: Jorgito Aguilera Order Number: [id number] Reading MD: Jorgito Aguilera MD Measurements Intervals [place] Rate: 67 P: 35 NM: 183 QRS: -72 QRSD: 108 T: 266 QT: 396 QTc: 412 Interpretive Statements SINUS RHYTHM LEFT ANTERIOR FASCICULAR BLOCK LATERAL MYOCARDIAL INFARCTION, OF INDETERMINATE AGE INFERIOR MYOCARDIAL INFARCTION, OF INDETERMINATE AGE WITH POSTERIOR EXTENSION Electronically Signed On 10-17-2016 11:13:14 EDT by Jorgito Aguilera MD
== END 2016-10-14 12:58 | disposition home or self-care (01) ==
LOC: ICNU 18:12
PROVIDERS: ADMIT Emergency Medicine; ATTEND Emergency Medicine